=== PATIENT | female | born 1965 | race Caucasian/White ===

== ENCOUNTER 2018-05-23 20:00 | Observation (INO) ==
[2018-05-23] MEDS ORDERED: 0.9 % Sodium Chloride 500 ML IVC ONE (20:01)
--- NOTE | 2018-05-23 20:03 | Emergency Department Note ---
Addendum entered and electronically signed by Lesa Mahan DO 05/24/18 09:04: Called for a rapid response to the floor at 0900 pt asymptomatic but has labs consistent with that of a NON-stemi DC. Called due to fact that unable contact the hospitalist. Pt seen and explained findings eKG reviewed and NSR non specific changes and HR 73 MO 167 QRS 93 QT 405 [place] -13 Alert oriented female lungs clear chest with out pain HRRR abd soft + BS no mass ext without edema trop I increasing on repeated labs now 0.5. Spoke with Pt agrees to cardiology services at [facility]. Awaiting consult Critical Care time 35 mins high probability of deterioration due to cardiac a ppearing event and making arrangements for transfer Impression Acute Nonstemi DC Original Note: Disposition Clinical Impression: Hyperglycemia Chest pain Qualifiers: Chest pain type: precordial pain Qualified Code(s): R07.2 - Precordial pain Disposition: Admitted As Inpatient Condition: Good Referrals: NONE,PCP [Primary Care Provider] - Forms: ED Satisfaction Letter Chest Pain HPI - General Chief Complaint: ED Chest Pain Stated Complaint: chest pain Time Seen by Provider: 05/23/18 20:01 Source: patient, EMS Mode of arrival: EMS Limitations: no limitations Vital Signs Reviewed: Yes Nursing Notes Reviewed: Yes - History of Present Illness HPI Narrative: Patient arrives by EMS with a history of onset of chest pain described is started at about 5:30 PM. Ramone states that their history was 6:30 PM. She states that she had been "drinking a couple Per's" and she developed a midsternal chest tightness radiating to her left arm with some left arm numbness. She states she has had that before and was evaluated to urinate half ago with [facility] with a negative cardiac catheterization. With this she did develop shortness of breath without diaphoresis or nausea. She denies cough, fevers or chills. She states that she "felt hot". She denies any lower extremity swelling, immobilization or injury. She arrives here with complaint of "just short of breath". EMS did establish an IV, transmitted an EKG, administered aspirin and nitroglycerin. With the nitroglycerin her pain decreased from an 8 to a 3 and then to no pain on arrival. She arrives here alert and interactive and laughing. She states her main complaint at this time is that she needs to go to the bathroom. She has been EKG performed at 7:39 PM shows a sinus rhythm with a singular PVC. She has a rate of 89, axis of 38, MO interval of 152 and a QT/QTC of 390/440. There are no acute ST or T-wave changes to suggest ischemia or infarction. Patient admits to a history of a previous stroke, hypertension, diabetes, elevated cholesterol, family history of heart disease and elevated BMI. She has no known proceeding heart disease or dysrhythmia, DVT, PE, smoking. Pt complaint: chest pain Onset (ago): hour(s) (2) Duration: constant, now resolved Onset: during rest Pain Location: substernal Severity: moderate Quality: tightness Pain Radiation: none Improves with: nitroglycerin Worsens with: nothing Associated symptoms: Reports: dyspnea. Denies: nausea, vomiting, diaphoresis, syncope, palpitations, fever, cough, leg swelling Treatments prior to arrival chest pain: aspirin, nitroglycerin, oxygen - Related Data Home Medications Medication Instructions Recorded Confirmed Aspirin 81 mg PO DAILY 01/10/16 05/23/18 Atorvastatin [Lipitor] 40 mg PO HS 01/10/16 05/23/18 Albuterol Sulfate [Ventolin Hfa] 18 gm IH Q4HR PRN 12/10/16 07/16/17 Metoprolol [Lopressor] 50 mg PO DAILY 12/10/16 05/23/18 metFORMIN [Glucophage] 1,000 mg PO BIDWM 12/10/16 05/23/18 Amlodipine Besylate 5 mg PO DAILY 07/16/17 07/16/17 Canagliflozin [Invokana] 100 mg PO DAILY 07/16/17 07/16/17 Glimepiride [Amaryl] 4 mg PO DAILY 05/23/18 05/23/18 Losartan/Hydrochlorothiazide 1 each PO DAILY 05/23/18 05/23/18 [Losartan-Hctz 100-12.5 mg Tab] Previous Rx's Medication Instructions Recorded Azithromycin [Zithromax] 500 mg PO DAILY #7 tablet 05/31/17 Allergies Allergy/AdvReac Type Severity Reaction Status Date / Time No Known Allergies Allergy Verified 12/10/16 07:40 All systems ED: reviewed and negative except as stated. 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 Absent: tenderness - Chest Chest inspection: Present: normal inspection, symmetric chest wall rise. Absent: tenderness - Respiratory Respiratory exam: Present: normal lung sounds bilaterally. Absent: respiratory distress, wheezes, prolonged expiratory phase - Cardiovascular Cardiovascular exam: Present: regular rate, normal rhythm, normal heart sounds. Absent: tachycardia - Abdominal Exam Abdominal exam: Present: soft, Non-Tender, normal bowel sounds. Absent: tenderness, distention, guarding, rebound, rigidity, Earl's sign, tenderness at McBurney's Point Abdominal tenderness: Absent: epigastrium - Extremities Exam Extremities exam: Present: normal inspection, full ROM, normal capillary refill. Absent: tenderness, pedal edema, calf tenderness - Expanded Lower Extremity Exam Neurovascular/Tendon exam: Present: normal capillary refill Gait: observed and normal (Shortly after arrival the patient ambulated quickly to the bathroom without difficulty.) - Back Exam Back exam: Present: normal inspection, full ROM. Absent: tenderness - Neurological Exam Neurological exam: Present: alert, oriented X3, normal gait - Psychiatric Psychiatric exam: Present: normal affect, normal mood. Absent: agitated, anxious - Skin Skin exam: Present: warm, dry, intact, normal color. Absent: cyanosis, diapho resis, pallor Course Course Narrative: 2049: With return of all testing, care is discussed with the patient. She states she is again having just very slight discomfort anterior chest and left arm. Even her multiple risk factors and a heart score of 4, I recommended we observe her in the hospital with serial troponins. She has received a half inch of nitroglycerin glycerin paced and 12 units of subcutaneous insulin for her hyperglycemia. I discussed care with Dr. Carroll who is agreeable with inpatient observation and verbal orders have been obtained. Vital Signs Temperature 98.7 F 05/23/18 20:01 Pulse Rate 89 05/23/18 20:01 Respiratory Rate 16 05/23/18 20:01 Blood Pressure 185/99 05/23/18 20:01 O2 Sat by Pulse Oximetry 97 05/23/18 20:01 Temperature 98.7 F 05/23/18 20:01 Pulse Rate 85 05/23/18 20:44 Respiratory Rate 19 05/23/18 20:44 Blood Pressure 147/82 05/23/18 20:44 O2 Sat by Pulse Oximetry 96 05/23/18 20:44 Oxygen Delivery Oxygen Delivery Room Air Chest Pain - Differential Diagnosis Likely: atypical chest pain, costalchondritis, chest pain - Medical Records Medical records reviewed: Yes I reviewed the patient's medical records. Name: Manda Chapin Date of Study: 08/23/2016 Procedures Performed: LEFT HEART CATH Indications: Chest pain Impressions: Coronary arteries are angiographically normal. The left ventricle is normal and has normal contractility EF 55% Recommendations: Optimal medical therapy of patient's disease. Aggressive risk factor modification. History/Risk Factors: HTN GERD RHUEMATIC FEVER Diabetes Diabetes Therapy: Oral Hypertension Dyslipidemia Family History of CAD - Lab Data Lab results reviewed: Yes I reviewed the patient's lab results. Result diagrams: 05/23/18 20:16 05/23/18 20:16 Lab Results 05/23/18 05/23/18 05/23/18 Range/Units 20:16 20:16 20:16 WBC (4.3-11.1) K/mcL RBC (3.82-4.97) M/mcL Hgb (11.5-15.4) g/dL Hct (35.3-44.9) % MCV (83.0-100.0) fL MCH (28.0-33.3) pg MCHC (31.6-35.5) g/dL RDW (11.5-14.5) % Plt Count (140-400) K/mcL MPV (9.4-12.4) fL Immature Gran % (0-4) % Seg Neutrophils % % Lymphocytes % % Monocytes % % Eosinophils % % Basophils % % Neutrophils # (1.6-8.9) K/mcL Lymphocytes # (0.6-4.6) K/mcL Monocytes # (0.0-1.3) K/mcL Eosinophils # (0.0-0.6) K/mcL Basophils # (0.0-0.2) K/mcL PT 10.0 (9.4-12.1) Seconds INR 0.9 APTT 29.7 (26.0-36.0) Seconds D-Dimer < 215 (0-500) ng/mLFEU Sodium (136-145) mEq/L Potassium (3.5-5.1) mEq/L Chloride (98-107) mEq/L Carbon Dioxide (23-29) mEq/L BUN (6-20) mg/dL Creatinine (0.60-1.20) mg/dL Est GFR ( Amer) (> 60) Est GFR (Non-Af Amer) (> 60) BUN/Creatinine Ratio (6-26) Glucose (70-105) mg/dL Calculated Osmolality (280-300) Calcium (8.6-10.3) mg/dL Total Bilirubin 0.5 (0.3-1.0) mg/dL Direct Bilirubin 0.0 (0.0-0.2) mg/dL Indirect Bilirubin 0.5 (0.0-1.2) mg/dL AST 12 L (13-39) Units/L ALT 12 (7-52) Units/L Alkaline Phosphatase 58 (34-104) Units/L Troponin I (< 0.04) ng/mL Serum Total Protein 6.8 (6.4-8.9) g/dL Albumin 3.8 (3.5-5.7) g/dL Globulin 3.0 (2.4-3.5) g/dL Albumin/Globulin Ratio 1.3 (1.1-2.2) Amylase 43 (29-103) Units/L Lipase (11-82) Units/L Ethyl Alcohol 34 H (Less than 10) mg/dL 05/23/18 05/23/18 05/23/18 Range/Units 20:16 20:16 20:16 WBC 6.2 (4.3-11.1) K/mcL RBC 4.05 (3.82-4.97) M/mcL Hgb 11.3 L (11.5-15.4) g/dL Hct 35.1 L (35.3-44.9) % MCV 86.7 (83.0-100.0) fL MCH 27.9 L (28.0-33.3) pg MCHC 32.2 (31.6-35.5) g/dL RDW 13.0 (11.5-14.5) % Plt Count 217 (140-400) K/mcL MPV 12.1 (9.4-12.4) fL Immature Gran % 0.2 (0-4) % Seg Neutrophils % 62.6 % Lymphocytes % 25.2 % Monocytes % 7.8 % Eosinophils % 3.2 % Basophils % 1.0 % Neutrophils # 3.9 (1.6-8.9) K/mcL Lymphocytes # 1.6 (0.6-4.6) K/mcL Monocytes # 0.5 (0.0-1.3) K/mcL Eosinophils # 0.2 (0.0-0.6) K/mcL Basophils # 0.1 (0.0-0.2) K/mcL PT (9.4-12.1) Seconds INR APTT (26.0-36.0) Seconds D-Dimer (0-500) ng/mLFEU Sodium 134 L (136-145) mEq/L Potassium 3.9 (3.5-5.1) mEq/L Chloride 100 (98-107) mEq/L Carbon Dioxide 24 (23-29) mEq/L BUN 14 (6-20) mg/dL Creatinine 0.67 (0.60-1.20) mg/dL Est GFR ( Amer) > 60 (> 60) Est GFR (Non-Af Amer) > 60 (> 60) BUN/Creatinine Ratio 21 (6-26) Glucose 410 H (70-105) mg/dL Calculated Osmolality 296 (280-300) Calcium 8.9 (8.6-10.3) mg/dL Total Bilirubin (0.3-1.0) mg/dL Direct Bilirubin (0.0-0.2) mg/dL Indirect Bilirubin (0.0-1.2) mg/dL AST (13-39) Units/L ALT (7-52) Units/L Alkaline Phosphatase (34-104) Units/L Troponin I < 0.03 (< 0.04) ng/mL Serum Total Protein (6.4-8.9) g/dL Albumin (3.5-5.7) g/dL Globulin (2.4-3.5) g/dL Albumin/Globulin Ratio (1.1-2.2) Amylase (29-103) Units/L Lipase 104 H (11-82) Units/L Ethyl Alcohol (Less than 10) mg/dL - Radiology Data Radiology results reviewed: Yes I reviewed the patient's radiology results. Single view chest x-ray is performed. This does not demonstrate evidence for infiltrate, effusion, pneumothorax, foreign body or heart failure. The cardiac silhouette is normal. I do not see abnormality to the osseous structures of the chest. This is on my interpretation. Impressions Chest X-Ray 05/23/18 20:01 IMPRESSION: No acute focal airspace consolidation. D/ / Wesley Marquez MD / Wesley Marquez MD Interpreting Provider: Wesley Marquez MD - EKG Data EKG attestation: Yes I reviewed and interpreted this EKG. EKG shows normal: sinus rhythm, axis, intervals, QRS complexes, ST-T waves Rate: normal (88) Rhythm: PVC's Interpretation: no acute changes, normal EKG Heart Score - Score History: Moderately Suspicious EKG: Normal Age: 45-65 Risk Factors: Equal/Greater than 3 risk factor or history of atherosclerotic disease Troponin: Less than normal limit HEART Score Total: 4
[2018-05-23 20:23] LABS: Basophils # 0.1 K/mcL (0.0-0.2); Eosinophils # 0.2 K/mcL (0.0-0.6); Eosinophils % 3.2 %; Hematocrit 35.1 % (35.3-44.9); Hemoglobin 11.3 g/dL (11.5-15.4); Immature Granulocytes % 0.2 % (0-4); Lymphocytes # 1.6 K/mcL (0.6-4.6); Lymphocytes % 25.2 %; Mean Corpuscular HGB Conc 32.2 g/dL (31.6-35.5); Mean Corpuscular Hemoglobin 27.9 pg (28.0-33.3); Mean Corpuscular Volume 86.7 fL (83.0-100.0); Mean Platelet Volume 12.1 fL (9.4-12.4); Monocytes # 0.5 K/mcL (0.0-1.3); Monocytes % 7.8 %; Neutrophils # 3.9 K/mcL (1.6-8.9); Platelet Count 217 K/mcL (140-400); Red Blood Count 4.05 M/mcL (3.82-4.97); Segmented Neutrophils % 62.6 %
[2018-05-23 20:35] LABS: INR 0.9
[2018-05-23 20:38] LABS: Activated Partial Thrombo Time 29.7 Seconds (26.0-36.0)
[2018-05-23 20:45] LABS: Albumin 3.8 g/dL (3.5-5.7); Albumin/Globulin Ratio 1.3 (1.1-2.2); Bilirubin,Indirect 0.5 mg/dL (0.0-1.2); Bilirubin,Total 0.5 mg/dL (0.3-1.0); Total Protein 6.8 g/dL (6.4-8.9)
[2018-05-23 20:46] LABS: BUN/Creatinine Ratio 21 (6-26); Blood Urea Nitrogen 14 mg/dL (6-20); Calcium 8.9 mg/dL (8.6-10.3); Carbon Dioxide 24 mEq/L (23-29); Chloride 100 mEq/L (98-107); Glucose 410 mg/dL (70-105); Osmolality,Calculated 296 (280-300); Potassium 3.9 mEq/L (3.5-5.1); Sodium 134 mEq/L (136-145); eGFR For Non-African Americans > 60 (> 60)
[2018-05-23] MEDS ORDERED: Insulin Regular, Human 100 UNIT/ML SQ ONE (20:46)
[2018-05-23 20:47] LABS: Troponin I < 0.03 ng/mL (< 0.04)
[2018-05-23] MEDS ORDERED: Nitroglycerin 1 INCH/GM PACKET TP ONE (20:50)
[2018-05-23] MEDS ORDERED: Ondansetron ODT 4 MG TAB.RAPDIS SL PRN (21:14)
[2018-05-23] MEDS ORDERED: D5% in Water 1,000 ML IVC PRN (21:14)
[2018-05-23] MEDS ORDERED: *HR* Dextrose 50 % in Water (Vial) 50 ML VIAL IVP PRN (21:14)
[2018-05-23] MEDS ORDERED: Mag Hydrox/Al Hydrox/Simeth 30 ML UDC PO PRN (21:14)
[2018-05-23] MEDS ORDERED: Dextrose Gel 15 GM/37.5 ML TUBE PO PRN ×2 (21:14)
[2018-05-23] MEDS ORDERED: MOM Conc 10 ML UD.LIQ PO PRN (21:14)
[2018-05-23] MEDS ORDERED: Naloxone 0.4 MG/ML INJ IVP PRN (21:14)
[2018-05-23] MEDS: 0.9 % Sodium Chloride 1,000 ML IVC SCH (21:42)
[2018-05-24] MEDS ORDERED: Nitroglycerin 0.4 MG TAB.SUBL SL PRN (04:25)
[2018-05-24] MEDS ORDERED: Metoprolol XL (24 HR) Succ 50 MG TAB.ER.24H PO SCH (04:45)
[2018-05-24 04:48] LABS: BUN/Creatinine Ratio 27 (6-26); Blood Urea Nitrogen 15 mg/dL (6-20); Calcium 8.1 mg/dL (8.6-10.3); Carbon Dioxide 26 mEq/L (23-29); Chloride 106 mEq/L (98-107); Glucose 151 mg/dL (70-105); Osmolality,Calculated 292 (280-300); Potassium 3.8 mEq/L (3.5-5.1); Sodium 139 mEq/L (136-145); eGFR For Non-African Americans > 60 (> 60)
[2018-05-24] MEDS: 0.9 % Sodium Chloride 1,000 ML IVC SCH (05:39)
[2018-05-24] MEDS ORDERED: Nitroglycerin 1 INCH/GM PACKET TP SCH (06:00)
[2018-05-24] MEDS ORDERED: Insulin LISPRO 300 UNITS/3 ML VIAL SQ SCH (07:30)
[2018-05-24] MEDS ORDERED: *HR* Metformin 500 MG TABLET PO SCH (08:00)
[2018-05-24] MEDS ORDERED: *HR* Glimepiride 2 MG TABLET PO SCH (09:00)
[2018-05-24] MEDS ORDERED: Losartan/HCTZ 50-12.5 TABLET PO SCH (09:00)
[2018-05-24] MEDS ORDERED: Aspirin 81 MG TAB.CHEW PO SCH (09:00)
[2018-05-24] MEDS ORDERED: Aspirin 81 MG TAB.CHEW PO ONE (09:02)
[2018-05-24] MEDS ORDERED: *HR* Ticagrelor 90 MG TABLET PO ONE (09:03)
[2018-05-24] MEDS ORDERED: *HR* Heparin 5,000 UNIT/ML VIAL IVP ONE (09:03)
[2018-05-24] MEDS ORDERED: *HR* Heparin 5,000 UNIT/ML VIAL IVP PRN ×2 (09:03)
[2018-05-24] MEDS ORDERED: Heparin 25,000 UNIT/250 ML D5W 25,000 UNIT/250 ML IV.SOLN IVC SCH (09:15)
[2018-05-24 09:55] VITALS: BP 181/115
--- NOTE | 2018-05-27 17:35 | Electrocardiograph Report ---
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
--- NOTE | 2018-05-28 11:51 | Internal Med Progress Note ---
Date of Encounter: 05/28/18 Time of Encounter: 11:45 - Subjective Interval history: Patient was admitted through emergency room evening of 05/23/2018 with complaints of chest pain. Repeat cardiac enzymes show troponin rise to 0.11 on 05/24/2018 at 0345. Troponin ann further to 0.55 on follow-up labs later that morning. Emergency room physician was called and I was paged. By the time I could return the call the ER physician had arranged for patient be transferred to [facility] for cardiology evaluation. I did not see her during her hospital stay. - Constitutional Vitals: Temp Pulse Resp BP Pulse Ox 97.9 F 76 18 181/115 99 05/24/18 09:49 05/24/18 09:49 05/24/18 09:49 05/24/18 09:49 05/24/18 09:49 Internal Medicine: Result - Labs CBC & Chem 7: 05/23/18 20:16 05/24/18 03:45 - ABG Interpretation ABG results: PT/INR, D-dimer PT 10.0 Seconds (9.4-12.1) 05/23/18 20:16 D-Dimer < 215 ng/mLFEU (0-500) 05/23/18 20:16 Consult Discharge Plan - Plan Referrals: NONE,PCP [Primary Care Provider] - 1 week
== END 2018-05-24 10:15 | disposition other institution (70) ==
LOC: EMEROOPIK 20:00 → INPPIK 20:00
PROVIDERS: ADMIT Internal Medicine; ATTEND Internal Medicine